=== PATIENT | female | born 1970 | race Caucasian/White ===

== ENCOUNTER 2016-09-27 12:48 | Inpatient (IN) | payer OTHER ==
--- NOTE | ~2016-09-27 | OP ---
Record Of Operation [facility] [address] [place]. [address] NAME: CASA RAMIREZ : 68 STATUS : ADM Yashira PAT#: [id number] AGE: 46 ADM/REG DATE : 09/27/16 MR#: [id number] REPORT SERV DATE: 09/30/16 DICTATED BY: STIVEN OLSEN DATE: 09/30/16 REPORT STATUS : Draft TRANSCRIBED BY: MODL DATE: 09/30/16 DATE OF PROCEDURE: 09/27/2016 PROCEDURE: Left heart catheterization, coronary arteriography, left ventriculography, saphenous vein graft arteriography, left internal mammary arteriography, PCI/stent of mid right coronary artery. INDICATION: Chest pain and shortness of breath in a patient with previous CABG. She is status post abnormal nuclear stress test demonstrating inferior ischemia. DESCRIPTION OF PROCEDURE: After informed consent was obtained, the patient was taken in a fasting state to the cardiac catheterization laboratory where she was prepped and draped in sterile fashion. Conscious sedation was obtained using intravenous Versed and fentanyl. The right inguinal region was anesthetized using 1% Xylocaine. The right femoral artery was then entered using a front-wall approach and cannulated with 6-Gabonese arterial sheath. A 6- [place]onese JR4 diagnostic catheter was then used to engage the left internal mammary artery to the mid LAD. Serial angiograms of this vessel were obtained. This catheter was then used to engage the ostia of the saphenous vein graft to the obtuse marginal artery. Serial angiograms of this vessel were obtained. This catheter was then used to engage the [place] right coronary artery. Serial angiograms of this vessel were obtained. This catheter was then exchanged for a 6-Gabonese JL4 diagnostic catheter, which was used to engage the left main coronary artery. Serial angiograms of this vessel were obtained. This catheter was then exchanged for a 6-Gabonese angled pigtail catheter, which was used to cross the aortic valve, at which time a left ventriculogram was performed. The catheter was then withdrawn back across the aortic valve with no significant aortic transvalvular gradient. Results of diagnostic angiography as follows: HEMODYNAMICS: Aorta 122/63 with a mean pressure of 69 mmHg. Left ventricle 125/6 with end- diastolic pressure of 20 mmHg. CORONARY ANATOMY: 1. Left main coronary artery: The left main coronary artery arises normally from left coronary cusp. This vessel has a 30% proximal tapering stenosis. 2. Left anterior descending artery: The left anterior descending artery arises normally from left main coronary artery. This vessel has diffuse luminal irregularities. There is a 60%-70% stenosis of the LAD in between the takeoff of the first and second diagonal arteries. 3. The left internal mammary artery to the mid LAD is widely patent with DELPHINE-3 grade flow. 4. Left circumflex artery: The left circumflex artery arises normally from the left main coronary artery. This vessel is subtotally occluded proximally. 5. The saphenous vein graft to the obtuse marginal artery is widely patent. 6. Right coronary artery: The right coronary artery arises normally from the right coronary cusp. This vessel has a long tapering 60%-70% midvessel stenosis. A stent is visualized in the mid portion of the posterior descending artery. It is widely patent. Record Of Operation [facility] [address] [place]. [address] NAME: CASA RAMIREZ : 68 STATUS : ADM Yashira PAT#: [id number] AGE: 46 ADM/REG DATE : 09/27/16 MR#: [id number] REPORT SERV DATE: 09/30/16 DICTATED BY: STIVEN OLSEN DATE: 09/30/16 REPORT STATUS : Draft TRANSCRIBED BY: JOSELIN DATE: 09/30/16 There is a 40%-50% stenosis distal to the stent. LEFT VENTRICULOGRAM: Left ventriculogram was performed, which showed hypokinesis of the inferior wall with dyskinesis of the distal inferior wall. Overall, systolic function is mildly reduced with an ejection fraction of 40% to 45%. There is mild mitral insufficiency. After the above findings, it was decided to proceed with PCI and stenting of the 70% mid right coronary artery stenosis as this appeared to be a culprit lesion and correlated with the abnormal nuclear stress test. A 6-Gabonese JR4 guiding catheter was used with a [employer] PT 0.014 x 182 cm extra support wire to cross the lesion. A [employer] Synergy 3.5 x 20 mm drug-eluting stent was then carefully positioned and deployed using 11 atmospheres for 30 seconds. An additional inflation was performed at 16 atmospheres for 30 seconds. Repeat angiography revealed a 0% residual stenosis with no dissection, flap, thrombus, embolization, or occlusion apparent. COMPLICATIONS: There were no apparent complications. CONCLUSIONS: 1. Severe [place] vessel coronary artery disease as described above. 2. Patent ESPINAL to mid LAD. 3. Patent saphenous vein graft to obtuse marginal artery. 4. Known occluded saphenous vein graft to right coronary artery. 5. Regional wall motion abnormalities as described above with mildly depressed systolic function. Mild mitral insufficiency. 6. Successful PCI/stent of 70% mid right coronary artery stenosis to 0% residual stenosis with a [employer] Synergy 3.5 x 20 mm drug-eluting stent. This lesion corresponded to the defect by nuclear stress testing. 7. No apparent complications. SA/MODL Stiven Olsen M.D., [facility] / [id number] CC: Stiven Florian M.D., F.A.C.C.
--- NOTE | ~2016-09-27 | HP ---
History And Physical [facility] [address] [place]. [address] NAME: GRICELDA TORREZ : 68 STATUS : ADM Yashira PAT#: [id number] AGE: 46 ADM/REG DATE : 09/27/16 MR#: [id number] REPORT SERV DATE: 09/28/16 DICTATED BY: STIVEN OLSEN DATE: 09/28/16 REPORT STATUS : Draft TRANSCRIBED BY: MODL DATE: 09/28/16 DATE OF ADMISSION: 09/27/2016 HISTORY OF PRESENT ILLNESS: Ms. Gricelda Torrez is a 46-year-old female with past medical history significant for coronary artery disease, status post three-vessel CABG in [place], [place] in 2010. The patient presents with a three-day history of intermittent shortness of breath and chest pain. The patient reports that her first episode was on Friday. She reports that she was eating when she acutely became short of breath. She reports that this passed after a couple of minutes. She reports that it was associated with some mild chest pain. The patient had a similar episode yesterday (Friday), which prompted her presentation to the emergency room. She reports that she has had some minimal discomfort today. REVIEW OF SYSTEMS: The patient reports stable two-pillow orthopnea. She reports occasional paroxysmal nocturnal dyspnea, which is not unusual for her. She reports occasional gastroesophageal reflux symptoms. She denies any syncope or presyncope. She denies any palpitations. She denies any genitourinary, neurologic, or gastrointestinal complaints except as per above. FAMILY HISTORY: Noncontributory. SOCIAL HISTORY: The patient does not smoke. MEDICATIONS: See list. ALLERGIES: THE PATIENT REPORTS THAT SHE IS ALLERGIC TO NONSTEROIDALS. PAST MEDICAL HISTORY: As noted above, significant for coronary artery disease. Patient is status post three-vessel bypass in [place], [place] in 2010. The patient had an arteriogram by Dr. Florian in 03/2015. This showed a patent ESPINAL to the LAD, and patent saphenous vein graft to obtuse marginal artery. There was an occluded saphenous vein graft to the right coronary artery, however, stents in the [place] right coronary artery and the proximal mid segments were patent. The patient also was noted to have a normal left main, a 90% proximal LAD, and an occluded left circumflex. Her ejection fraction was 45%. She had mild mitral insufficiency. Past medical history is also significant for hypertension and hyperlipidemia. PHYSICAL EXAMINATION: VITAL SIGNS: Stable. Blood pressure is elevated on her last reading at 183/81, but prior to this was fairly well controlled. Pulse 63, respiratory rate 18. The patient is afebrile. GENERAL: This is a well-developed, well-nourished 46-year-old white female, alert and oriented x3 in no acute distress. NECK: No jugular venous distention, hepatojugular reflux, or carotid bruits. CARDIOVASCULAR: Normal rate with regular rhythm. No murmur, gallop, click, or rub. LUNGS: Clear to auscultation without wheezes, rales, or rhonchi. History And Physical [address] [address] NAME: GRICELDA TORREZ : 68 STATUS : ADM Yashira PAT#: [id number] AGE: 46 ADM/REG DATE : 09/27/16 MR#: [id number] REPORT SERV DATE: 09/28/16 DICTATED BY: STIVEN OLSEN DATE: 09/28/16 REPORT STATUS : Draft TRANSCRIBED BY: JOSELIN DATE: 09/28/16 ABDOMEN: Soft, nontender, and nondistended. Positive bowel sounds. EXTREMITIES: Without clubbing, cyanosis, or edema. NEUROLOGIC EXAM: Grossly nonfocal. LABORATORY DATA: Laboratory is significant for 2 negative troponins. EKG shows probable remote inferior myocardial infarction. There is no acute injury or ischemia evident on her tracing. ASSESSMENT: 1. Chest pain. 2. Shortness of breath. 3. Coronary artery disease. 4. Hypertension. 5. Hyperlipidemia. 6. Mild mitral insufficiency. 7. Mildly reduced ejection fraction equals 45%. PLAN: 1. See orders. 2. Nuclear stress test. 3. Will aggressively address blood pressure. SA/MODL Stiven Olsen M.D., [facility] / [id number] CC: Stiven Florian M.D., F.A.C.CKareen Vázquez M.D.
--- NOTE | ~2016-09-27 | DS ---
Discharge Summary [facility] [address] [place]. [address] NAME: CASA RAMIREZ : 68 STATUS : DIS IN PAT#: [id number] AGE: 46 ADM/REG DATE : 09/27/16 MR#: [id number] REPORT SERV DATE: 10/08/16 DICTATED BY: STIVEN OLSEN DATE: 10/07/16 REPORT STATUS : Draft TRANSCRIBED BY: MODAl DATE: 10/07/16 Data Collection from hospitalization DISCHARGE DIAGNOSES: 1. Chest pain and acute coronary syndrome. 2. Coronary artery disease. 3. Shortness of breath. 4. Hypertension. 5. Hyperlipidemia. 6. Congestive heart failure, chronic, systolic. 7. Mitral regurgitation, mild. CONSULTATIONS: None. PROCEDURES PERFORMED: 1. Left heart catheterization, coronary arteriography, left ventriculography, saphenous vein graft arteriography, left internal mammary arteriography, PCI stent of mid right coronary artery, 09/27/2016. 2. Myocardial perfusion imaging, 09/28/2016. MEDICATIONS: Aspirin 81 mg daily, BuSpar 5 mg three times a day, Imdur 120 mg daily, Prinivil 2.5 mg daily, Antivert 25 mg three times a day, Toprol-XL 50 mg daily, fish oil 1200 mg three times a day, Zocor 40 mg at bedtime, Brilinta 90 mg twice daily, Centrum 1 daily, Tylenol 1000 mg three times daily as needed, Nitrostat 0.4 mg sublingually as needed. CONDITION AT DISCHARGE: Upon discharge, she did appear to be doing well and had no complaints. DISPOSITION: She had been discharged home to continue a 4 g sodium, low cholesterol, cardiac diet with activity as discussed. She was to follow up with cardiac rehab on 11/06/2016. Follow up with Dr. Stiven Florian on 10/29/2016. HOSPITAL COURSE: This 46-year-old female had a history significant for coronary artery disease status post 3-vessel CABG in [place], [place] in 2010. She had presented with a 3- day history of intermittent shortness breath and chest pain. She reported that her first episode was on Friday. She reported that she was eating when she acutely became short of breath. This passed after a couple of minutes. She reported that it was associated with some mild chest pain. The patient had a similar episode on the day prior to admission which prompted her presentation to the emergency room. She reported that she had some minimal discomfort on the day of admission as well. She was admitted for further treatment. Upon admission to the hospital, she had been placed on acute coronary syndrome orders. She did undergo the above catheterization on the day of admission. She had tolerated this well and was transferred to the recovery room. Following the day of admission, she did appear to be doing well. She did undergo the above myocardial perfusion imaging. She tolerated this well and was transferred back to her room. On 09/29/2016, she did still have intermittent chest pain and shortness of breath. She was afebrile and her vital signs were stable. Her nuclear stress test revealed intermediate risk. She was continued on her current medications. On 09/30/2016, she did still have intermittent chest pain and shortness of Discharge Summary [address] [place]. [address] NAME: CASA RAMIREZ : 68 STATUS : DIS IN PAT#: [id number] AGE: 46 ADM/REG DATE : 09/27/16 MR#: [id number] REPORT SERV DATE: 10/08/16 DICTATED BY: STIVEN OLSEN DATE: 10/07/16 REPORT STATUS : Draft TRANSCRIBED BY: JOSELIN DATE: 10/07/16 breath. She was afebrile and her vital signs were stable. She did continue to do well and on 10/01/2016, she did state that she had felt better. She did remain in stable condition and was then discharged with the above instructions. Information collected by: Joann CatesH.I.T. I submit the above information as my discharge summary. RW/MODL Stiven Olsen M.D., [facility] / [id number] CC: Stiven Florian M.D., F.A.CZechariah Vázquez M.D.
[~2016-09-27 12:48] MED LIST: ACET500CAP PO; ADVIL PO; ASAB PO; BRILINTA90 MG PO; HALF81 PO; IMDUR60 PO; KLOR-CON M2020 MEQ PO; L40 PO; LOP25 PO; MOTRIN IB200 MG PO; MULTIVIT/MIN PO; NITROQUICK0.4 MG SL; NITROSTAT0.4 MG SL; PRIN10 PO; RANEXA1000 MG PO; THERGRANM PO; VENTOLIN HFA INH; ZOCOR40 PO
[2016-09-27 13:33] LABS: BASOPHILS 0.4 %; BASOPHILS ABSOLUTE 0.02 10/3/uL (0.0-0.16); EOSINOPHILS 3.5 %; EOSINOPHILS ABSOLUTE 0.19 10/3/uL (0.0-0.53); HEMATOCRIT 38.4 % (36.0-48.0); IMMATURE GRANULOCYTES 0.5 %; IMMATURE GRANULOCYTES ABSOLUTE 0.03 10/3/uL (0.0-0.11); LYMPHOCYTES 42.9 %; LYMPHOCYTES ABSOLUTE 2.35 10/3/uL (0.67-4.30); MANUAL DIFF NO %; MEAN CORPUS HGB CONC 33.9 g/dL (32.0-36.0); MEAN CORPUSCULAR HEMOGLOB 29.5 pg (26.0-34.0); MEAN CORPUSCULAR VOLUME 87.1 fL (80-100); MONOCYTES 5.8 %; MONOCYTES ABSOLUTE 0.32 10/3/uL (0.21-1.20); NEUTROPHILS 46.9 %; NEUTROPHILS ABSOLUTE 2.57 10/3/uL (2.02-8.40); PLATELET COUNT 208 10/3/uL (150-400); RBC DISTRIBUTION WIDTH 12.7 % (12.0-16.0); RED CELL COUNT 4.41 10/6/uL (4.0-5.6); WHITE BLOOD CELLS 5.5 10/3/uL (4.5-10.5)
[2016-09-27 13:40] LABS: PROTIME (NOT ORD) 13.4 SEC (12.0-14.5)
[2016-09-27 13:51] LABS: ALBUMIN 3.7 G/DL (3.5-5.0); ALKALINE PHOSPHATASE 68 U/L (45-117); BUN (BLOOD UREA NITROGEN) 19 MG/DL (6-23); CHLORIDE, SERUM 110 MMOL/L (96-112); CO2 (CARBON DIOXIDE) 27 MMOL/L (24-34); CREATININE 0.85 MG/DL (0.55-1.02); GFR AFRICAN AMERICAN 95 ML/MIN (>=60); GFR NON AFRICAN AMERICAN 82 ML/MIN (>=60); GLOBULIN 3.7 G/DL (2.5-4.1); POTASSIUM, SERUM 3.4 MMOL/L (3.5-5.3); SGOT(AST) 38 U/L (5-40); SGPT(ALT) 80 U/L (5-65); SODIUM, SERUM 143 MMOL/L (135-148); TOTAL BILIRUBIN 0.5 MG/DL (0-1.2); TOTAL PROTEIN 7.4 G/DL (6.0-8.5); TROPONIN I 0.02 NG/ML (<0.05)
[2016-09-27 13:52] LABS: GLUCOSE, SERUM 140 MG/DL (60-99)
[2016-09-27] MEDS ORDERED: CENTRUM PO (15:31)
[2016-09-27] MEDS ORDERED: FISH OIL1200 MG PO (15:31)
[2016-09-27] MEDS ORDERED: BUSPAR5 PO (15:31)
[2016-09-27] MEDS ORDERED: HALF81 PO (15:31)
[2016-09-27] MEDS ORDERED: ACET500CAP PO (15:32)
[2016-09-27] MEDS ORDERED: IMDUR60 PO (15:32)
[2016-09-27] MEDS ORDERED: MCZ25 PO (15:32)
[2016-09-27] MEDS ORDERED: ZOCOR40 PO (15:33)
[2016-09-27] MEDS ORDERED: TOPXL50 PO (15:33)
[2016-09-27] MEDS ORDERED: PRIN2.5 PO (15:33)
[2016-09-27] MEDS ORDERED: BRILINTA90 MG PO (15:33)
[2016-09-27] MEDS ORDERED: NITROSTAT0.4 MG SL (15:33)
[2016-09-28 04:59] LABS: BASOPHILS 0.3 %; BASOPHILS ABSOLUTE 0.02 10/3/uL (0.0-0.16); EOSINOPHILS 3.2 %; EOSINOPHILS ABSOLUTE 0.21 10/3/uL (0.0-0.53); HEMATOCRIT 37.6 % (36.0-48.0); HEMOGLOBIN 12.8 g/dL (12.0-16.0); IMMATURE GRANULOCYTES 0.3 %; IMMATURE GRANULOCYTES ABSOLUTE 0.02 10/3/uL (0.0-0.11); LYMPHOCYTES 51.5 %; LYMPHOCYTES ABSOLUTE 3.39 10/3/uL (0.67-4.30); MEAN CORPUSCULAR HEMOGLOB 29.6 pg (26.0-34.0); MEAN CORPUSCULAR VOLUME 86.8 fL (80-100); MEAN PLATELET VOLUME 11.1 fL (9.2-13.0); MONOCYTES 5.2 %; MONOCYTES ABSOLUTE 0.34 10/3/uL (0.21-1.20); NEUTROPHILS 39.5 %; PLATELET COUNT 191 10/3/uL (150-400); RBC DISTRIBUTION WIDTH 12.7 % (12.0-16.0); RED CELL COUNT 4.33 10/6/uL (4.0-5.6); WHITE BLOOD CELLS 6.6 10/3/uL (4.5-10.5)
[2016-09-28 05:01] LABS: MANUAL DIFF NO %
[2016-09-28 05:17] LABS: CHOL/HDL RATIO(NOT ORDER) 5.9 (0-5)
[2016-09-30 04:12] LABS: BASOPHILS 0.4 %; BASOPHILS ABSOLUTE 0.02 10/3/uL (0.0-0.16); EOSINOPHILS 4.8 %; EOSINOPHILS ABSOLUTE 0.27 10/3/uL (0.0-0.53); HEMATOCRIT 36.6 % (36.0-48.0); HEMOGLOBIN 12.3 g/dL (12.0-16.0); IMMATURE GRANULOCYTES 0.2 %; IMMATURE GRANULOCYTES ABSOLUTE 0.01 10/3/uL (0.0-0.11); LYMPHOCYTES 47.3 %; LYMPHOCYTES ABSOLUTE 2.68 10/3/uL (0.67-4.30); MEAN CORPUS HGB CONC 33.6 g/dL (32.0-36.0); MEAN CORPUSCULAR HEMOGLOB 29.3 pg (26.0-34.0); MEAN CORPUSCULAR VOLUME 87.1 fL (80-100); MONOCYTES 5.1 %; MONOCYTES ABSOLUTE 0.29 10/3/uL (0.21-1.20); NEUTROPHILS 42.2 %; NEUTROPHILS ABSOLUTE 2.39 10/3/uL (2.02-8.40); PLATELET COUNT 200 10/3/uL (150-400); RBC DISTRIBUTION WIDTH 12.7 % (12.0-16.0); WHITE BLOOD CELLS 5.7 10/3/uL (4.5-10.5)
[2016-09-30 04:18] LABS: MANUAL DIFF NO %
[2016-09-30 04:19] LABS: PROTIME (NOT ORD) 13.5 SEC (12.0-14.5)
[2016-09-30 04:29] LABS: CALCIUM, SERUM 8.8 MG/DL (8.5-10.4); CHLORIDE, SERUM 108 MMOL/L (96-112); CHOLESTEROL 206 MG/DL (< 200); CO2 (CARBON DIOXIDE) 27 MMOL/L (24-34); CREATININE 0.79 MG/DL (0.55-1.02); GFR AFRICAN AMERICAN 103 ML/MIN (>=60); GFR NON AFRICAN AMERICAN 89 ML/MIN (>=60); GLUCOSE, SERUM 122 MG/DL (60-99); HDL CHOLESTEROL 41 MG/DL (> 49); LDL CHOLESTEROL 92 MG/DL (< 130); NON-HDL CHOLESTEROL 165 MG/DL (< 160); SODIUM, SERUM 139 MMOL/L (135-148); TRIGLYCERIDE 367 MG/DL (< 150)
[2016-09-30 04:30] LABS: BUN (BLOOD UREA NITROGEN) 13 MG/DL (6-23)
== END 2016-10-01 09:40 | disposition home or self-care (01) | DRG 247 ==
LOC: ER 12:48 → CDU1 15:21 → SSU1 09-30 14:14
PROVIDERS: Emergency Medicine; Internal Medicine Interventional Cardiology
PROC: 027034Z Dilation of Coronary Artery, One Artery with Drug-eluting Intraluminal Device, Percutaneous Approach (ICD-10-PCS; principal; 2016-09-27)
PROC: 4A023N7 Measurement of Cardiac Sampling and Pressure, Left Heart, Percutaneous Approach (ICD-10-PCS; 2016-09-27)
PROC: B2111ZZ Fluoroscopy of Multiple Coronary Arteries using Low Osmolar Contrast (ICD-10-PCS; 2016-09-27)
PROC: B2151ZZ Fluoroscopy of Left Heart using Low Osmolar Contrast (ICD-10-PCS; 2016-09-27)
DX: I25.10 Atherosclerotic heart disease of native coronary artery without angina pectoris (principal); I11.0 Hypertensive heart disease with heart failure; I50.22 Chronic systolic (congestive) heart failure; I34.0 Nonrheumatic mitral (valve) insufficiency; E78.5 Hyperlipidemia, unspecified; Z95.1 Presence of aortocoronary bypass graft
CPT/HCPCS: 71010; 78452; 80048; 80053; 80061; 83880; 84460; 84484; 84703; 85025; 85610; 85730; 93005; 93017; 93459; 96374; 99152; 99153; 99285; A9270-GY; A9502; C1769; C1874; C1887; C1894; C9600; J0153; J0583; J2250; J2405; J3010; Q9967